=== PATIENT | male | born 1950 | race Caucasian/White ===

== ENCOUNTER → 2025-02-16 | Outpatient (CLI) | payer MEDICARE, OTHER ==
--- NOTE | 2025-02-16 14:37 | US ---
EXAMINATION TYPE: US arterial LE single level DATE OF EXAM: 02/16/2025 2:21 PM COMPARISONS: None. CLINICAL INDICATION: Male, 74 years old with history of R22.42 LOCALIZED SWELLING, MASS A; left leg s welling TECHNIQUE: Systolic pressures were taken of the upper and lower extremity arteries with ankle-brachia l indices and toe brachial indices calculated bilaterally. History of: Smoker: No Hypertension: Yes Diabetic: No Hyperlipidemia: No TIA/CVA: Stroke in 2018 Previous Vascular Surgery: No CAD: No VA: No Vascular Ulcers: No Claudication: No Gangrene: No FINDINGS: Doppler Waveforms: Right: Monophasic with intermittent resistance. Left: Biphasic Brachial Artery systolic pressure: Right: 166 Left: 180 Posterior Tibial artery systolic pressure: Right: CNO Left: CNO Dorsalis Pedis artery systolic pressure: Right: CNO Left: CNO Ankle-Brachial Indices: Right: XX Left: XX IMPRESSION: Cannot obtain lower extremity arterial study pressure therefore ankle-brachial indices were not calcu lated. Monophasic waveforms with intermediate resistance within the right lower extremity. Normal bip hasic waveforms within the left lower extremity. Cannot exclude right lower extremity peripheral well[place] rial vascular disease. Consider further evaluation with CTA runoff there is continuing clinical jeff rn. [facility], , 02/16/2025 2:35 PM
--- NOTE | 2025-02-16 15:12 | US ---
EXAMINATION TYPE: US venous doppler duplex LE LEFT DATE OF EXAM: 02/16/2025 1:44 PM COMPARISON: NONE CLINICAL INDICATION: Male, 74 years old with history of R22.42 LOCALIZED SWELLING, MASS A; left leg s welling, Pain TECHNIQUE: The lower extremity deep venous system is examined utilizing real time linear array sonog humble with graded compression, color doppler sonography, and spectral doppler. SIDE PERFORMED: Left FINDINGS: VESSELS IMAGED: Common Femoral Vein Deep Femoral Vein Greater Saphenous Vein * Femoral Vein Popliteal Vein Small Saphenous Vein * Proximal Calf Veins (* superficial vessels) Left Leg: No evidence for DVT, Color Doppler imaging shows patency of the vessels. Spectral waveform s are within normal limits. IMPRESSION: No evidence for DVT within the left lower extremity imaged from the groin to the upper calf. [facility], , 02/16/2025 3:10 PM
== END | disposition home or self-care (01) ==
LOC: RADUSWWP 13:18
PROVIDERS: ATTEND Family Medicine
DX: R22.42 Localized swelling, mass and lump, left lower limb (principal); M79.605 Pain in left leg
CPT/HCPCS: 93922

== ENCOUNTER → 2025-03-09 | Outpatient (CLI) | payer MEDICARE, OTHER ==
[2025-03-09 12:38] VITALS: BP 144/88; PULSE 66; RESP 19; TEMP 99.3
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
== END ==
LOC: PNWHC3 12:02
PROVIDERS: ATTEND Specialist
DX: M19.012 Primary osteoarthritis, left shoulder (principal); M19.011 Primary osteoarthritis, right shoulder; M54.50 Low back pain, unspecified; M79.604 Pain in right leg; M79.605 Pain in left leg; F12.11 Cannabis abuse, in remission; Z88.4 Allergy status to anesthetic agent; Z88.5 Allergy status to narcotic agent
CPT/HCPCS: 99202

== ENCOUNTER 2025-04-11 18:01 | Emergency (ER) | payer MEDICARE, OTHER ==
[2025-04-11 18:19] VITALS: RESP 18
--- NOTE | 2025-04-11 18:44 | ED ---
General Adult HPI - General Source: patient, family, RN notes reviewed Mode of arrival: wheelchair Limitations: no limitations <River Pizano - Last Filed: 04/11/25 18:43> <Shane Yu - Last Filed: 04/11/25 22:09> - General Chief complaint: Neuro Symptoms/Deficit Stated complaint: Poss TIA Time Seen by Provider: 04/11/25 18:43 - History of Present Illness Initial comments: Quick note: 74-year-old male presented the ER for evaluation of possible TIA. Patient reports a history of these. Around 11 AM patient states he started to feel dizzy with partial peripheral vision loss in bilateral eyes. He states he appears to have sparkles or snowflakes. He states symptoms resolved after approximately 10 minutes. He denies any slurred speech or facial droop at that time. Patient also was complaining of left wrist pain. No known injuries. Patient does report a history of gout and has been taking colchicine. He denies any current dizziness, lightheadedness, visual disturbances, chest pain, shor tness of breath. (River Pizano) - Related Data Previous Rx's Medication Instructions Recorded HYDROcodone/APAP 7.5-325MG [[place] 1 tab PO BID PRN 30 Days #60 tab 03/09/25 7.5-325] HYDROcodone/APAP 7.5-325MG [[place] 1 tab PO BID PRN 30 Days #60 tab 03/09/25 7.5-325] Indomethacin [Indocin] 50 mg PO TID #15 capsule 04/11/25 Allergies Allergy/AdvReac Type Severity Reaction Status Date / Time ketamine Allergy Confusion Verified 04/11/25 18:19 tramadol Allergy Nausea Verified 04/11/25 18:19 Review of Systems ROS Other: All systems not noted in ROS Statement are negative. <River Pizano - Last Filed: 04/11/25 18:43> ROS Other: All systems not noted in ROS Statement are negative. <Shane Yu - Last Filed: 04/11/25 22:09> ROS Statement: Those systems with pertinent positive or pertinent negative responses have been documented in the HPI. Past Medical History Past Medical History: CVA/TIA Additional Past Medical History / Comment(s): left sided deficits from previous CVA in 2016 History of Any Multi-Drug Resistant Organisms: None Reported Past Surgical History: Adenoidectomy, Hernia Repair, Joint Replacement, Tonsillectomy Smoking Status: Never smoker <River Pizano - Last Filed: 04/11/25 18:43> General Exam Limitations: no limitations <River Pizano - Last Filed: 04/11/25 18:43> - General Exam Comments Initial Comments: Visual Physical Exam Vital signs reviewed General: Well-appearing, nontoxic, no acute distress. Head: Normocephalic, atraumatic Eyes: PERRLA, EOMI ENT: Airway patent Chest: Nonlabored breathing Skin: No visual rash, normal skin tone Neuro: Alert and oriented 3 Musculoskeletal: No gross abnormalities erythema left wrist (River Pizano) Course Vital Signs 04/11/25 18:14 Temperature 97.7 F Pulse Rate 65 Respiratory 18 Rate Blood Pressure 152/76 O2 Sat by Pulse 98 Oximetry EKG Findings - EKG Comments: EKG Findings:: EKG is bradycardia 57 ID 145 QRS 92 QTc 425 - EKG Results: EKG: interpreted by ERMD <Shane Yu - Last Filed: 04/11/25 22:09> Medical Decision Making <River Pizano - Last Filed: 04/11/25 18:43> - Lab Data Result diagrams: 04/11/25 18:42 04/11/25 18:42 <Shane Yu - Last Filed: 04/11/25 22:09> - Medical Decision Making I performed the quick note portion of this chart. Electronically signed by River Pizano PA-C (River Pizano) - Lab Data Lab Results 04/11/25 04/11/25 Range/Units 18:42 18:42 WBC 5.29 (4.50-10.00) 10*3/uL RBC 3.93 L (4.40-5.60) 10*6/uL Hgb 11.8 L (13.0-17.0) g/dL Hct 35.2 L (39.6-50.0) % MCV 89.6 (80.0-97.0) fL MCH 30.0 (27.0-32.0) pg MCHC 33.5 (32.0-37.0) g/dL Plt Count 101 L (140-440) 10*3/uL MPV 10.4 (9.5-12.2) fL Immature Gran % (Auto) 0.2 % Neutrophils % 67.0 % Lymphocytes % 18.1 % Monocytes % 7.9 % Eosinophils % 6.2 % Basophils % 0.6 % Immature Gran # 0.01 (0.00-0.04) 10*3/uL Neutrophils # 3.54 (1.80-7.70) 10*3/uL Lymphocytes # 0.96 (0.90-5.00) 10*3/uL Monocytes # 0.42 (0.20-1.00) 10*3/uL Eosinophils # 0.33 (0.04-0.35) 10*3/uL Basophils # 0.03 (0.00-0.10) 10*3/uL Manual Slide Review Performed Large Platelets Present Sodium 137 (137-145) mmol/L Potassium 4.0 (3.5-5.1) mmol/L Chloride 103 (98-107) mmol/L Carbon Dioxide 25 (22-30) mmol/L Anion Gap 9 mmol/L BUN 23 H (9-20) mg/dL Creatinine 1.39 H (0.66-1.25) mg/dL Est GFR (CKD-EPI)AfAm 58 (>60 ml/min/1.73 sqM) Est GFR (CKD-EPI)NonAf 50 (>60 ml/min/1.73 sqM) Glucose 91 (74-99) mg/dL Calcium 9.4 (8.4-10.2) mg/dL Total Bilirubin 0.9 (0.2-1.3) mg/dL AST 27 (17-59) U/L ALT 27 (4-49) U/L Alkaline Phosphatase 116 (38-126) U/L Total Protein 7.4 (6.3-8.2) g/dL Albumin 4.2 (3.5-5.0) g/dL Disposition <River Pizano - Last Filed: 04/11/25 18:43> Is patient prescribed a controlled substance at d/c from ED?: No Time of Disposition: 22:10 <Shane Yu - Last Filed: 04/11/25 22:09> Clinical Impression: Transient cerebral ischemia, Gout of wrist Disposition: HOME SELF-CARE Condition: Fair Instructions (If sedation given, give patient instructions): Gout (ED) Prescriptions: Indomethacin [Indocin] 50 mg PO TID #15 capsule Referrals: Domo Stack DO [Primary Care Provider] - 1-2 days
--- NOTE | 2025-04-11 19:14 | XR ---
EXAMINATION TYPE: XR wrist complete LT DATE OF EXAM: 04/11/2025 7:04 PM COMPARISON: None. CLINICAL INDICATION: Male, 74 years old with history of pain/swelliing, pain TECHNIQUE: 4 view(s) obtained. FINDINGS: No acute fracture or dislocation evident. Joint spaces are preserved. Vascular calcification is prese nt. Soft tissues appear normal. If there is pain at the anatomic snuffbox, nonaggressive bone scan can be performed for closer evalua tion. Follow-up x-ray can be performed 7-10 days from acute trauma for continued pain. IMPRESSION: 1. No acute osseous abnormality left wrist [facility], , 04/11/2025 7:11 PM
--- NOTE | 2025-04-11 20:03 | CT ---
EXAMINATION TYPE: CT brain wo con DATE OF EXAM: 04/11/2025 7:28 PM COMPARISON: None. CLINICAL INDICATION: Male, 74 years old with history of dizziness, tia/vision changes TECHNIQUE: CT of the brain is performed utilizing 3 mm thick sections through the posterior fossa and 3 mm thick sections through the remaining calvarium. Study is performed within 24 hours of arrival to the hospital. Contrast used: mL of , (none if empty) CT DLP: 1162.4 mGycm, Automated exposure control for dose reduction was used. FINDINGS: No abnormal hyperdensity is present to suggest an acute intracranial hemorrhage. No mass lesion is evident. No acute infarcts are evident. Ventricles and sulci are appropriate for the patient age. Paranasal sinuses and mastoid air cells within the [id number] are clear. IMPRESSION: 1. No acute intracranial process. Follow up MRI can be performed as clinically indicated. [facility], , 04/11/2025 8:01 PM
[2025-04-11 20:57] LABS: Basophils # (A) 0.03 10*3/uL (0.00-0.10); Basophils % (A) 0.6 %; Eosinophils # (A) 0.33 10*3/uL (0.04-0.35); Eosinophils % (A) 6.2 %; HCT 35.2 % (39.6-50.0); HGB 11.8 g/dL (13.0-17.0); Lymphocytes # (A) 0.96 10*3/uL (0.90-5.00); Lymphocytes % (A) 18.1 %; MCHC 33.5 g/dL (32.0-37.0); MCV 89.6 fL (80.0-97.0); Mean Platelet Volume 10.4 fL (9.5-12.2); Monocytes # (A) 0.42 10*3/uL (0.20-1.00); Monocytes % (A) 7.9 %; Neutrophils # (A) 3.54 10*3/uL (1.80-7.70); Platelet Count 101 10*3/uL (140-440); RBC 3.93 10*6/uL (4.40-5.60); RDW 14.5 % (11.5-14.5); WBC 5.29 10*3/uL (4.50-10.00)
[2025-04-11 21:19] LABS: ALT 27 U/L (4-49); AST 27 U/L (17-59); African American GFR (CKD) 58 (>60 ml/min/1.73 sqM); Albumin 4.2 g/dL (3.5-5.0); Alkaline Phosphatase 116 U/L (38-126); Anion Gap 9 mmol/L; Blood Urea Nitrogen 23 mg/dL (9-20); Calcium 9.4 mg/dL (8.4-10.2); Carbon Dioxide 25 mmol/L (22-30); Chloride 103 mmol/L (98-107); Glucose 91 mg/dL (74-99); Non-African American GFR(CKD) 50 (>60 ml/min/1.73 sqM); Sodium 137 mmol/L (137-145); Total Bilirubin 0.9 mg/dL (0.2-1.3); Total Protein 7.4 g/dL (6.3-8.2)
[2025-04-11 21:42] LABS: Large Platelets Present
[2025-04-11 22:14] VITALS: BP 156/90; PULSE 61; TEMP 98
[2025-04-11] MEDS: KETOROLAC 15 MG/ML 1 ML VIAL IVP STA (22:17)
[2025-04-11] MEDS: DEXAMETHASONE SOD PHOSPHATE 10 MG/ML 1 ML VIAL IVP STA (22:18)
[2025-04-11] MEDS: cefTRIAXone IN SWFI 1,000 MG/10 ML SYRINGE IVP STA (22:20)
== END 2025-04-11 22:46 | disposition home or self-care (01) ==
LOC: EC 18:01
DX: G45.9 Transient cerebral ischemic attack, unspecified (principal); M10.9 Gout, unspecified; R00.1 Bradycardia, unspecified; Z88.4 Allergy status to anesthetic agent; Z88.5 Allergy status to narcotic agent
CPT/HCPCS: 36415; 93005; 80053; 85025; 73110; 70450; 99284; 96374; 96375 ×2; J1100; J0696; J1885